=== PATIENT | female | born 1970 | race Caucasian/White ===

== ENCOUNTER → 2017-01-20 | Outpatient (CLI) | payer OTHER ==
[~2017-01-20] MED LIST: ACET-1256 PO; FENT25DI2 TD; LEVO50TA6 PO; LISI-787 PO; TRAM-10 PO
[2017-01-20 15:54] LABS: HEMATOCRIT 40.8 % (37-47); MEAN CELL VOLUME 93.6 fL (80-100); MEAN CORPUSCULAR HEMOGLOBIN 31.2 pg (25-34); MEAN CORPUSCULAR HGB CONC 33.3 g/dl (32-36); MEAN PLATELET VOLUME 8.9 fL (7.4-10.4); PLATELET COUNT 397 K/uL (130-400); RED BLOOD COUNT 4.36 M/uL (4.2-5.4); WHITE BLOOD COUNT 11.23 K/uL (4.8-10.8)
[2017-01-20 17:07] LABS: THYROID STIMULATING HORMONE 0.463 uIu/ml (0.300-4.500)
== END | disposition home or self-care (01) ==
LOC: C.LAB1850 15:03
PROVIDERS: ATTEND Obstetrics & Gynecology
DX: N92.1 Excessive and frequent menstruation with irregular cycle (principal)

== ENCOUNTER → 2017-01-20 | Outpatient (CLI) | payer OTHER | END | disposition home or self-care (01) | LOC: C.PATHSPEC 17:36 | PROVIDERS: ATTEND Obstetrics & Gynecology | DX: N92.1 Excessive and frequent menstruation with irregular cycle (principal) ==

== ENCOUNTER → 2017-01-20 | Outpatient (CLI) | payer OTHER | END | disposition home or self-care (01) | LOC: C.PAPS 10:29 | PROVIDERS: ATTEND Obstetrics & Gynecology | DX: Z12.4 Encounter for screening for malignant neoplasm of cervix (principal); R87.610 Atypical squamous cells of undetermined significance on cytologic smear of cervix (ASC-US) ==

== ENCOUNTER 2018-02-02 11:11 | Emergency (ER) | payer OTHER ==
[~2018-02-02] VITALS: Ht 157.5 cm; Wt 84.4 kg
[2018-02-02 11:23] VITALS: TEMP 36.9; Ht 157.5 cm; Wt 84.4 kg
[2018-02-02] MEDS ORDERED: PARO1TAB27 PO (11:47)
[2018-02-02] MEDS ORDERED: OXYC10TA80 PO (11:47)
[2018-02-02 12:04] LABS: BASO % 1.2 %; BASO ABS # 0.09 K/uL (0-0.2); EOS % 1.8 %; EOS ABS # 0.13 K/uL (0-0.5); HEMATOCRIT 44.4 % (37-47); HEMOGLOBIN 15.4 g/dL (12.0-16.0); IG# 0.01 K/uL (0.00-0.02); LYMPH % 34.5 %; MEAN CELL VOLUME 91.9 fL (80-100); MEAN CORPUSCULAR HEMOGLOBIN 31.9 pg (25-34); MEAN CORPUSCULAR HGB CONC 34.7 g/dl (32-36); MEAN PLATELET VOLUME 8.3 fL (7.4-10.4); MONO % 11.2 %; MONO ABS # 0.81 K/uL (0.11-0.59); NEUT % 51.2 %; PLATELET COUNT 330 K/uL (130-400); RED CELL DISTRIBUTION WIDTH CV 13.3 % (11.5-14.5); RED CELL DISTRIBUTION WIDTH SD 44.5 fL (36.4-46.3); WHITE BLOOD COUNT 7.24 K/uL (4.8-10.8)
[2018-02-02 12:12] LABS: INR 0.9 (0.9-1.1); PTT PATIENT 26.1 SECONDS (21.0-31.0)
--- NOTE | 2018-02-02 12:22 | DIAGNOSTIC IMAGING REPORT ---
CHEST ONE VIEW PORTABLE CLINICAL HISTORY: EVALUATE WEAKNESS mental status change COMPARISON STUDY: 09/06/2014 FINDINGS: The bones soft tissues and hemidiaphragms are normal. The cardiomediastinal silhouette is normal. The lungs are clear. The pulmonary vasculature is normal. IMPRESSION: Negative chest. The above report was generated using voice recognition software. It may contain grammatical, syntax or spelling errors. Electronically signed by: Abiodun Burgos M.D. 02/02/2018 12:21 PM Dictated Date/Time: 02/02/2018 12:20 PM
[2018-02-02 12:23] LABS: ALBUMIN 4.1 gm/dl (3.4-5.0); ALT/SGPT 18 U/L (12-78); AST/SGOT 8 U/L (15-37); BLOOD UREA NITROGEN 17 mg/dl (7-18); CARBON DIOXIDE 26 mmol/L (21-32); CREATININE 0.89 mg/dl (0.60-1.20); GLUCOSE 150 mg/dl (70-99); LIPASE 118 U/L (73-393); POTASSIUM 4.1 mmol/L (3.5-5.1); SODIUM 138 mmol/L (136-145)
[2018-02-02 12:24] VITALS: O2SAT 97
[2018-02-02 12:31] LABS: ALKALINE PHOSPHATASE 55 U/L (45-117); CKMB < 0.5 ng/ml (0.5-3.6); TOTAL PROTEIN 7.7 gm/dl (6.4-8.2)
[2018-02-02] MEDS ORDERED: HYDROmorphone INJ 1 MG/ML SYR IV STA (12:39)
--- NOTE | 2018-02-02 13:28 | DIAGNOSTIC IMAGING REPORT ---
CT OF THE THORACIC SPINE WITHOUT CONTRAST CLINICAL HISTORY: Back pain after lifting. COMPARISON STUDY: Thoracic spine MRI September 07, 2013. TECHNIQUE: Axial images of the thoracic spine were obtained without IV contrast. Sagittal and coronal reconstructions were viewed. FINDINGS: Alignment of the thoracic spine is anatomic. Vertebral body heights are maintained. There is minimal multilevel disc space narrowing with mild to moderate anterior osteophytosis of the thoracic spine. No fracture or suspicious lesion is present. Thoracic spine central canal and neural foramen are suboptimally assessed by CT but no obvious abnormalities are present. Paravertebral soft tissues are unremarkable. There is mild emphysema. The abdomen and pelvis will be reported separately. A 4 mm left renal calculus is noted. IMPRESSION: 1. No acute thoracic spine fracture or subluxation. 2. Mild multilevel degenerative disc disease of the thoracic spine. Electronically signed by: Adeel Beltran M.D. 02/02/2018 1:27 PM Dictated Date/Time: 02/02/2018 1:22 PM
--- NOTE | 2018-02-02 13:34 | DIAGNOSTIC IMAGING REPORT ---
CT OF THE ABDOMEN AND PELVIS WITHOUT CONTRAST CLINICAL HISTORY: Upper abdominal pain. Back pain. COMPARISON STUDY: CT of the abdomen and pelvis March 05, 2016. TECHNIQUE: Axial images of the abdomen and pelvis were obtained without IV contrast. Images were reviewed in the axial, sagittal, and coronal planes. A dose lowering technique was utilized adhering to the principles of ALARA. FINDINGS: The thoracic and lumbar spine CTs will be reported separately. Several bilateral renal calculi are noted, including a 5 mm right renal calculus and a 4 mm left renal calculus. No ureteral calculi are present. There is no hydronephrosis. There is no biliary ductal dilatation status post cholecystectomy. Unenhanced images of the liver are unremarkable with the exception of trace pneumobilia. No pneumatosis, free air or portal venous gas is present. Unenhanced images of the spleen, adrenal glands and pancreas are unremarkable. There is no peripancreatic infiltration. A few colonic diverticula are noted. There is no evidence for acute diverticulitis. The appendix is normal. The ovaries are not enlarged. There is no lymphadenopathy or ascites. There are no suspicious osseous lesions. IMPRESSION: 1. Bilateral nephrolithiasis. No ureteral calculi or hydronephrosis. 2. Normal appendix. No bowel obstruction. 3. Colonic diverticulosis without evidence for acute diverticulitis. Electronically signed by: Adeel Beltran M.D. 02/02/2018 1:33 PM Dictated Date/Time: 02/02/2018 1:28 PM
--- NOTE | 2018-02-02 13:43 | DIAGNOSTIC IMAGING REPORT ---
LUMBAR SPINE WITHOUT CT DOSE: HISTORY: Pain BACK PAIN AFTER LIFTING TECHNIQUE: Multiaxial CT images of the lumbar spine were performed and reformatted in the sagittal and coronal plane without the use of contrast. A dose lowering technique was utilized adhering to the principles of ALARA. COMPARISON: None. FINDINGS: No fractures. No subluxation. Paraspinal soft tissues are unremarkable. IMPRESSION: No fractures within the lumbar spine. The above report was generated using voice recognition software. It may contain grammatical, syntax or spelling errors. Electronically signed by: Abiodun Burgos M.D. 02/02/2018 1:41 PM Dictated Date/Time: 02/02/2018 1:24 PM
[2018-02-02 14:39] VITALS: BP 158/95; PULSE 81; O2SAT 98
--- NOTE | 2018-02-02 18:06 | EMERGENCY ROOM VISIT NOTE ---
History Report prepared by Aneta: Evangelist Schumacher Under the Supervision of: Dr. Bakari Jewell M.D. First contact with patient: 11:45 Chief Complaint: PAIN (GENERALIZED) Stated Complaint: SEVERE BACK PAIN, CHEST PAIN,STOMACH PAIN,NUMBNESS History of Present Illness The patient is a 47 year old female who presents to the Emergency Room with complaints of constant abdominal and chest pain. Her chest pain began three days ago. Her abdominal pain began two weeks ago. The patient also complains of intermittent hand numbness (x2 months) and chronic back pain. She notes that she was chronically on Fentanyl, but recently had her doses changed by pain management. She dropped from 50 mcg to 25 mcg, and then was taken off of Fentanyl entirely one month ago. The patient states that she was started on Percocet when her Fentanyl dose decreased to 25 mcg, and oxycodone when she was taken off of Fentanyl. She was taken off of the oxycodone earlier this week by her PCP due to her additional symptoms. The patient is currently taking 50 mg of Percocet daily. She notes that she has a history of chronic upper and lower back pain for over 20 years after a spinal cord injury (has been on pain medication since this time). She has a history of cholecystectomy. The patient states that her Percocet does help her pain. She notes that she was lifting some boxes recently, but denies any recent injury. The patient states that pain management referred to the ED today for pain control and medical evaluation. Source of History: patient Onset: Chest pain x3 days, Abdominal pain x2 weeks Position: chest, abdomen Timing: constant Modifying Factors (Relieving): other (Percocet) Associated Symptoms: + back pain (chronic), + numbness (intermittent hand ( x2 months)) Review of Systems See HPI for pertinent positives and negatives. A total of ten systems were reviewed and were otherwise negative. Past Medical & Surgical Medical Problems: (1) Abdominal pain (2) Abdominal pain (3) Acute abdominal pain (4) Chronic back pain (5) Epigastric pain (6) History of biliary stent insertion (7) Hypertension Nos (8) Hypokalemia (9) Intractable abdominal pain Surgical Problems: (1) History of cholecystectomy (2) Previous section Social History Problems: (1) Status post cholecystectomy Family History Diabetes mellitus Heart disease Social History Smoking Status: Current Every Day Smoker Alcohol Use: none Drug Use: none Marital Status: Housing Status: lives with significant other Occupation Status: disabled Current/Historical Medications Scheduled Levothyroxine Sodium (Levothyroxine Sodium), 50 MCG PO DAILY Lisinopril/Hctz (Zestoretic 20MG/12.5MG), 1 TAB PO DAILY Paroxetine (Paxil), 20 CAP PO DAILYBB Scheduled PRN Acetaminophen (Tylenol), 1,500 MG PO Q3H PRN for Pain Oxycodone/Acetaminophen 10MG/325MG (Percocet 10MG/325MG), 1 TAB PO 5XD PRN for Pain Allergies Coded Allergies: Adhesives (Verified Allergy, Unknown, local skin irritation, 02/02/18) Hydrocodone (Verified Allergy, Unknown, RASH, 02/02/18) Rabeprazole (Verified Allergy, Unknown, hives on torso/neck, 02/02/18) Aspirin (Unverified Adverse Reaction, Unknown, abdominal cramping, bloody stool, 02/02/18) NSAIDs (Unverified Adverse Reaction, Unknown, abdominal cramping, bloody stool, 02/02/18) Physical Exam Vital Signs Date Time Temp Pulse Resp B/P (MAP) Pulse Ox O2 Delivery O2 Flow Rate FiO2 02/02/18 14:39 81 18 158/95 98 02/02/18 13:50 87 18 159/98 97 Room Air 02/02/18 12:24 97 Room Air 02/02/18 12:24 95 16 135/96 98 Room Air 02/02/18 11:45 86 02/02/18 11:23 36.9 103 18 96 Room Air Physical Exam GENERAL: Awake, alert, uncomfortable-appearing, in no distress HENT: Normocephalic, atraumatic. Oropharynx unremarkable. EYES: Normal conjunctiva. Sclera non-icteric. NECK: Supple. No nuchal rigidity. FROM. No masses. RESPIRATORY: Clear to auscultation. No wheezes. No rales. Normal respiratory effort. CARDIAC: Borderline tachycardic rate. Normal rhythm. No murmurs. No rubs. Extremities warm and well perfused. Pulses equal. No JVD. GI: Soft, non-distended. No tenderness to palpation. No rebound or guarding. No masses. RECTAL: Deferred. MUSCULOSKELETAL: Atraumatic. Chest examination reveals no tenderness. The back is symmetrical on inspection without obvious abnormality. There is no CVA tenderness to palpation. No joint edema. LOWER EXTREMITIES: Calves are equal size bilaterally and non-tender. No edema. No discoloration. NEURO: Normal sensorium. No sensory or motor deficits noted. SKIN: No rash or jaundice noted. Medical Decision & Procedures ER Provider Diagnostic Interpretation: Radiology results as stated below per my review and radiologist interpretation: CHEST ONE VIEW PORTABLE FINDINGS: The bones soft tissues and hemidiaphragms are normal. The cardiomediastinal silhouette is normal. The lungs are clear. The pulmonary vasculature is normal. IMPRESSION: Negative chest. The above report was generated using voice recognition software. It may contain grammatical, syntax or spelling errors. Electronically signed by: Abiodun Burgos M.D. 02/02/2018 12:[address] OF THE ABDOMEN AND PELVIS WITHOUT CONTRAST FINDINGS: The thoracic and lumbar spine CTs will be reported separately. Several bilateral renal calculi are noted, including a 5 mm right renal calculus and a 4 mm left renal calculus. No ureteral calculi are present. There is no hydronephrosis. There is no biliary ductal dilatation status post cholecystectomy. Unenhanced images of the liver are unremarkable with the exception of trace pneumobilia. No pneumatosis, free air or portal venous gas is present. Unenhanced images of the spleen, adrenal glands and pancreas are unremarkable. There is no peripancreatic infiltration. A few colonic diverticula are noted. There is no evidence for acute diverticulitis. The appendix is normal. The ovaries are not enlarged. There is no lymphadenopathy or ascites. There are no suspicious osseous lesions. IMPRESSION: 1. Bilateral nephrolithiasis. No ureteral calculi or hydronephrosis. 2. Normal appendix. No bowel obstruction. 3. Colonic diverticulosis without evidence for acute diverticulitis. Electronically signed by: Adeel Beltran M.D. 02/02/2018 1:[address] OF THE THORACIC SPINE WITHOUT CONTRAST FINDINGS: Alignment of the thoracic spine is anatomic. Vertebral body heights are maintained. There is minimal multilevel disc space narrowing with mild to moderate anterior osteophytosis of the thoracic spine. No fracture or suspicious lesion is present. Thoracic spine central canal and neural foramen are suboptimally assessed by CT but no obvious abnormalities are present. Paravertebral soft tissues are unremarkable. There is mild emphysema. The abdomen and pelvis will be reported separately. A 4 mm left renal calculus is noted. IMPRESSION: 1. No acute thoracic spine fracture or subluxation. 2. Mild multilevel degenerative disc disease of the thoracic spine. Electronically signed by: Adeel Beltran M.D. 02/02/2018 1:27 PM LUMBAR SPINE WITHOUT FINDINGS: No fractures. No subluxation. Paraspinal soft tissues are unremarkable. IMPRESSION: No fractures within the lumbar spine. The above report was generated using voice recognition software. It may contain grammatical, syntax or spelling errors. Electronically signed by: Abiodun Burgos M.D. 02/02/2018 1:41 PM Laboratory Results 02/02/18 11:54 Red Blood Count 4.83, Mean Corpuscular Volume 91.9, Mean Corpuscular Hemoglobin 31.9, Mean Corpuscular Hemoglobin Concent 34.7, Mean Platelet Volume 8.3, Neutrophils (%) (Auto) 51.2, Lymphocytes (%) (Auto) 34.5, Monocytes (%) (Auto) 11.2, Eosinophils (%) (Auto) 1.8, Basophils (%) (Auto) 1.2, Neutrophils # (Auto ) 3.70, Lymphocytes # (Auto) 2.50, Monocytes # (Auto) 0.81, Eosinophils # (Auto ) 0.13, Basophils # (Auto) 0.09 02/02/18 11:54 Test 02/02/18 11:32 02/02/18 11:54 Urine Color YELLOW Urine Appearance CLEAR (CLEAR) Urine pH 5.5 (4.5-7.5) Urine Specific [place] 1.026 (1.000-1.030) Urine Protein NEG (NEG) Urine Glucose (UA) NEG (NEG) Urine Ketones NEG (NEG) Urine Occult Blood 3+ (NEG) Urine Nitrite NEG (NEG) Urine Bilirubin NEG (NEG) Urine Urobilinogen NEG (NEG) Urine Leukocyte Esterase NEG (NEG) Urine WBC (Auto) 1-5 /hpf (0-5) Urine RBC (Auto) 5-10 /hpf (0-4) Urine Hyaline Casts (Auto) 0 /lpf (0-5) Urine Epithelial Cells (Auto) >30 /lpf (0-5) Urine Bacteria (Auto) NEG (NEG) White Blood Count 7.24 K/uL (4.8-10.8) Red Blood Count 4.83 M/uL (4.2-5.4) Hemoglobin 15.4 g/dL (12.0-16.0) Hematocrit 44.4 % (37-47) Mean Corpuscular Volume 91.9 fL (80-100) Mean Corpuscular Hemoglobin 31.9 pg (25-34) Mean Corpuscular Hemoglobin Concent 34.7 g/dl (32-36) Platelet Count 330 K/uL (130-400) Mean Platelet Volume 8.3 fL (7.4-10.4) Neutrophils (%) (Auto) 51.2 % Lymphocytes (%) (Auto) 34.5 % Monocytes (%) (Auto) 11.2 % Eosinophils (%) (Auto) 1.8 % Basophils (%) (Auto) 1.2 % Neutrophils # (Auto) 3.70 K/uL (1.4-6.5) Lymphocytes # (Auto) 2.50 K/uL (1.2-3.4) Monocytes # (Auto) 0.81 K/uL (0.11-0.59) Eosinophils # (Auto) 0.13 K/uL (0-0.5) Basophils # (Auto) 0.09 K/uL (0-0.2) RDW Standard Deviation 44.5 fL (36.4-46.3) RDW Coefficient of Variation 13.3 % (11.5-14.5) Immature Granulocyte % (Auto) 0.1 % Immature Granulocyte # (Auto) 0.01 K/uL (0.00-0.02) Prothrombin Time 9.9 SECONDS (9.0-12.0) Prothromb Time International Ratio 0.9 (0.9-1.1) Activated Partial Thromboplast Time 26.1 SECONDS (21.0-31.0) Partial Thromboplastin Ratio 1.0 Anion Gap 4.0 mmol/L (3-11) Est Creatinine Clear Calc Drug Dose 77.9 ml/min Estimated GFR () 88.8 Estimated GFR (Non- 76.6 BUN/Creatinine Ratio 19.5 (10-20) Calcium Level 9.0 mg/dl (8.5-10.1) Magnesium Level 2.0 mg/dl (1.8-2.4) Total Bilirubin 0.3 mg/dl (0.2-1) Direct Bilirubin < 0.1 mg/dl (0-0.2) Aspartate Amino Transf (AST/SGOT) 8 U/L (15-37) Alanine Aminotransferase (ALT/SGPT) 18 U/L (12-78) Alkaline Phosphatase 55 U/L (45-117) Total Creatine Kinase 57 U/L (26-192) Creatine Kinase MB < 0.5 ng/ml (0.5-3.6) Creatine Kinase MB Ratio (0-3.0) Troponin I < 0.015 ng/ml (0-0.045) Total Protein 7.7 gm/dl (6.4-8.2) Albumin 4.1 gm/dl (3.4-5.0) Lipase 118 U/L (73-393) Thyroid Stimulating Hormone (TSH) 1.370 uIu/ml (0.300-4.500) Human Chorionic Gonadotropin, Qual NEG (NEG) Laboratory results reviewed by me Medications Administered Medications (Trade) Dose Ordered Sig/Sean Route Start Time Stop Time Status Last Admin Dose Admin Hydromorphone HCl (Dilaudid Inj) 1 mg NOW STAT IV 02/02/18 12:39 02/02/18 12:41 DC 02/02/18 12:58 1 MG ECG Per My Interpretation Indication: chest pain Rate (beats per minute): 100 Rhythm: normal sinus Findings: nonspecific-ST abn, other (No PVCs. ) ED Course 1154: The patient was evaluated in room B7. A complete history and physical exam was performed. 1239: Ordered Dilaudid Inj 1 mg IV. 1420: I reevaluated the patient. Discussed results and discharge instructions at length: she verbalized understanding and agreement. The patient is ready for discharge. Medical Decision Prior records/ancillary studies reviewed and summarized above. Nursing notes reviewed and agree them. 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 The patient's history was concerning for weakness. Differential diagnosis: Etiologies such as medication related, withdrawal, metabolic, infection, hypo/ hyperglycemia, electrolyte abnormalities, cardiac sources, intracerebral event, toxicologic, neurologic, as well as others were entertained. Physical examination: As above. ER treatment provided: IV Lock Dilaudid 1 mg IV On reassessment the patient felt better. Vital signs improved. Her symptoms abated. Diagnostics interpretation by me: ECG: Normal as above The labs revealed an unremarkable CBC and chemistry panel. Urinalysis negative. Cardiac markers negative. LFTs negative. Imaging studies: Chest x-ray and CT scans as above The patient came in with multiple complaints and was very concerned that there was a medical etiology to her symptoms. She had an extensive workup performed and her diagnostic testing which included urinalysis, blood work, EKG, chest x- ray and multiple CT scans did not reveal any abnormalities. Chronic problems noted. I did discuss her issues with her pain management clinic. They did note treatment in the ER was not unacceptable or against her contract but no prescription should be written as that would violate her contract. Going back to the patient's history she has been tapered from a significant amount of narcotics. She is still taking a large dose of Percocet although it is much less than what she recently was prescribed. Her symptoms seem to be consistent with a component of withdrawal on top of chronic pain. She felt significantly better and vital signs improved with a simple dose of Dilaudid. I discussed that she will need to follow-up closely with her primary clinic as well as her pain management. She asked for recommendations or suggestions regarding her outpatient medications and I did reiterate that this would need to be done through her outpatient providers. It is not the place of the emergency department to manage her chronic pain prescriptions. The patient feels very comfortable with this plan. She will notify her clinics and if any problems develop or new symptoms arise she will come back to the emergency department for reevaluation. I gave my usual and customary discussion regarding this issue. By the evaluation outlined above other emergent etiologies such as those listed in the differential, as well as others, were deemed relatively unlikely. The patient was educated about the findings as listed above. All questions were answered and the patient was pleased with the treatment. Return instructions were outlined and the patient was discharged in stable condition. The patient was referred to the primary office and pain management for follow- up for a recheck of the current condition. Medication Reconcilliation Current Medication List: was personally reviewed by me Blood Pressure Screening Patient's blood pressure: Elevated blood pressure Blood pressure disposition: Elevated BP felt to be situational Consults Time Called: 1209 Consulting Physician: Karolina AGUAYO - Pain Management Returned Call: 1230 Discussed the patient's case. Karolina AGUAYO reiterated the issues with the patient's prescription (namely that the changes to her Oxycodone from her PCP were a violation of her contract with pain management). She states that the patient is still should not receive prescriptions. Impression Primary Impression: Generalized abdominal pain Additional Impressions: Chronic back pain Substernal chest pain Chronic narcotic dependence Scribe Attestation The scribe's documentation has been prepared under my direction and personally reviewed by me in its entirety. I confirm that the note above accurately reflects all work, treatment, procedures, and medical decision making performed by me. Departure Information Dispostion Home / Self-Care Referrals Kvng Villalpando MD (PCP) Forms HOME CARE DOCUMENTATION FORM, IMPORTANT VISIT INFORMATION, WORK / SCHOOL INSTRUCTIONS Patient Instructions My [facility] Additional Instructions Continue current medications. Follow-up with your primary doctor today regarding the issues that brought you to the emergency department. Contact your pain management clinic tomorrow to discuss the current situation and follow on care. Return to the ER for worsening symptoms, chest pain, difficulty breathing, fevers, vomiting, bloody stools, worsening of your condition, or as needed. Problem Qualifiers
== END 2018-02-02 14:40 | disposition home or self-care (01) ==
LOC: C.EDB 11:12
DX: R10.84 Generalized abdominal pain (principal); M54.9 Dorsalgia, unspecified; G89.29 Other chronic pain; R07.2 Precordial pain; F11.20 Opioid dependence, uncomplicated; E11.9 Type 2 diabetes mellitus without complications; E87.6 Hypokalemia; Z79.899 Other long term (current) drug therapy; F17.210 Nicotine dependence, cigarettes, uncomplicated; Z91.048 Other nonmedicinal substance allergy status; Z88.5 Allergy status to narcotic agent; Z88.8 Allergy status to other drugs, medicaments and biological substances